=== PATIENT | male | born 1940 | race African-American/Black ===

== ENCOUNTER 2023-05-21 21:39 | Emergency (ER) | payer OTHER, MEDICARE ==
[2023-05-21 22:10] VITALS: RESP 16; BMI 25.1
[2023-05-21 23:18] LABS: HEMATOCRIT 36.1 % (35.4-49); HEMOGLOBIN 11.7 G/dL (11.7-16.9); MCH 31.2 pg (25.7-33.7); MCHC 32.3 g/dl (32.0-35.9); MEAN CELL VOLUME 96.5 fl (80-96); PLATELET COUNT 97.3 10^3/uL (134-434); RBC 3.74 10^6/uL (4.00-5.60); RDW 17.6 % (11.9-15.9); WHITE BLOOD COUNT 4.7 10^3/uL (4.0-10.8)
[2023-05-21] MEDS ORDERED: ACETAMINOPHEN 325 MG TABLET (FP) ONE (23:25)
[2023-05-21 23:37] LABS: PLATELET ESTIMATE SLT DECREASE
[2023-05-21 23:42] LABS: ALBUMIN 3.9 g/dl (3.4-5.0); BLOOD UREA NITROGEN 23.8 mg/dl (7-18); CREATININE 5.3 mg/dl (0.6-1.3); POTASSIUM 4.9 mmol/L (3.5-5.1); SGOT/AST 16.3 U/L (15-37); SGPT/ALT 17.6 U/L (7-52); TOT PROT 6.6 g/dl (6.4-8.2)
[2023-05-22] MEDS ORDERED: ACETAMINOPHEN 325 MG TABLET (FP) PO ONE (01:40)
[2023-05-22] MEDS ORDERED: ACETAMINOPHEN 325 MG TABLET (FP) ONE (01:43)
[2023-05-22 03:18] LABS: BILIRUBIN,TOTAL 0.7 mg/dL (0.2-1)
[2023-05-22 06:50] VITALS: BP 136/58; PULSE 75; TEMP 98
== END 2023-05-22 08:18 | disposition home or self-care (01) ==
LOC: FER 21:39
DX: R42 Dizziness and giddiness (principal)
CPT/HCPCS: 36415; 70450-TC; 80053; 85027; 99284-25